=== PATIENT | male | born 1995 | race Native Hawaiian/Other Pacific Islander ===

== ENCOUNTER 2022-02-02 12:22 | Inpatient (IN) | payer OTHER ==
[~2022-02-02] VITALS: Ht 185.4 cm; Wt 74.3 kg
[2022-02-02 13:06] LABS: Hematocrit 45.7 % (37.0-53.0); Hemoglobin 16.6 g/dL (13.5-17.5); Mean Corpuscular HGB 36.4 pg (26.0-34.0); Mean Corpuscular HGB Conc 36.3 g/dL (31.5-36.5); Mean Corpuscular Volume 100 fL (80-100); Mean Platelet Volume 9.4 fL (9.1-12.4); Platelet Count 329 K/mm3 (150-400); RDW Coefficient Variation 15.3 % (11.7-14.2); RDW Standard Deviation 57.6 fL (35.1-46.3); Red Blood Cell Count 4.56 M/mm3 (4.30-5.90); White Blood Cell Count 22.53 K/mm3 (4.00-11.30)
[2022-02-02 13:23] LABS: Albumin, Blood 3.7 g/dL (3.4-5.0); Albumin/Globulin Ratio 0.9 (0.8-1.8); Bilirubin, Total 1.7 mg/dL (0.1-1.0); Bun/Creatinine Ratio 11.1 (12.0-20.0); Calcium, Blood 9.1 mg/dL (8.5-10.1); Creatinine, Blood 0.72 mg/dL (0.60-1.20); Globulin, Blood 4.1 g/dL (2.2-4.0); Potassium, Blood 3.9 mmol/L (3.5-5.5); Total Protein, Blood 7.8 g/dL (6.4-8.2)
[2022-02-02 13:26] LABS: BASOPHILS PERCENT MAN 0 % (0-2); EOSINOPHILS PERCENT MAN 0 % (0-6); LYMPHOCYTES ABSOLUTE MAN 0.45 K/mm3 (0.84-5.20); LYMPHOCYTES PERCENT MAN 2 % (21-46); MONOCYTES ABSOLUTE MAN 0.45 K/mm3 (0.16-1.47); MONOCYTES PERCENT MAN 2 % (4-13); NEUTROPHILS ABSOLUTE MAN 21.62 K/mm3 (1.96-9.15); SEG NEUTROPHILS PERCENT MAN 96 % (41-73); TOTAL CELLS COUNTED 100
[2022-02-02 15:19] LABS: International Normalized Ratio 1.4; Prothrombin Time Results 14.4 Sec (9.7-11.5)
--- NOTE | 2022-02-02 18:05 | NUR ---
Admit note Received telephone report ed rn, pt to room at approx at 1541, pt sba transfered to bed. Impulsive. Pt reports headache and epigastric pain, 8/10 medicated per order. Pt alert, oriented to person, place, current situation and unsure of dates states 11/02/21, knowns tomorrow is a holiday and the presidnet. pt states last drink was 01/31/22 at approx 0500, he drinks 12-18 mikes hard lemonades daily. CIWA 27 tremors, headache, auditory, tachtile and visual hallucinations, confusion, nausea, and anxiety/aggitation noted. Pt tele sinus/sinus tach, bp stable. Spo2 >90% on ra, breahting even and unlabored. Magnesium replacement and iv fluids infusing. Elevated temp 99.9 noted. No other acute changes noted. Will continue to monitor until report given to oncoming rn.
[2022-02-02 19:42] LABS: Source, Urine Clean Catch
[2022-02-02 19:50] LABS: Appearance, Urine Clear (Clear); Bilirubin, Urine Neg (Neg); Blood, Urine 1+ (Neg); Color, Urine Amber (P-Yellow); Glucose Qualitative, Urine Neg (Neg); Ketones, Urine 1+ (Neg); Leukocyte Esterase, Urine 1+ (Neg); Nitrite, Urine Neg (Neg); Protein, Urine 2+ (Neg); Specific Gravity, Urine 1.005 (1.003-1.022); Urobilinogen, Urine NORM (Normal)
[2022-02-02 20:15] LABS: Bacteria Few /hpf; Squamous Epithelial Cells Rare /hpf (Few)
--- NOTE | 2022-02-02 22:29 | NUR ---
ASSUMED CARE NOTE ASSUMED CARE OF PT AT 1900. PT IS ALERT AND ORIENTED TO SELF/PLACE, UNABLE TO STATE TIME. PT IS ABLE TO STATE CURRENT SITUATION. PT HAVING BOTH AUDITORY AND VISUAL HALLUCINATIONS. PT C/O ABDOMINAL AND HEADACHE PAIN, FENTANYL GIVEN PER MAY. CI 20, ATIVAN GIVEN. CALLED RESIDENT CAROLE FOR LIBRIUM ORDER. PT C/O NOT BEING ABLE TO SLEEP, ORDER FOR MELATONIN OBTAINED. CALLED RESIDENT CAROLE REGARDING PT STATUS/LABS, MADE HER AWARE THAT NO ANTIBIOTICS WERE INITIATED, NO NEW ORDERS AT THIS TIME. PT DENIES ANY NAUSEA, TOLERATING WATER. PT CAN BE IMPULSIVE, BED ALARM IN PLACE.
[2022-02-03 00:49] LABS: U Amphetamine Screen Not Detected; U Barbituate Screen Not Detected; U Benzodiazapine Screen DETECTED; U Buprenorphine Screen Not Detected; U Cannabinoids Screen Not Detected; U Cocaine Screen Not Detected; U Methadone Screen Not Detected; U Methamphetamine Screen Not Detected; U Opiates Screen Not Detected; U Oxycodone Screen DETECTED; U Phencyclidine Screen Not Detected; U Propoxyphene Screen Not Detected
[2022-02-03 04:21] LABS: BASOPHILS ABSOLUTE AUTO 0.04 K/mm3 (0.00-0.23); BASOPHILS PERCENT AUTO 0 % (0-2); EOSINOPHILS PERCENT AUTO 0 % (0-6); Hematocrit 39.3 % (37.0-53.0); Hemoglobin 13.9 g/dL (13.5-17.5); IMMATURE GRAN ABSOLUTE AUTO 0.14 K/mm3 (0.00-0.10); IMMATURE GRAN PERCENT AUTO 1 % (0-1); LYMPHOCYTES ABSOLUTE AUTO 1.21 K/mm3 (0.84-5.20); LYMPHOCYTES PERCENT AUTO 5 % (21-46); MONOCYTES ABSOLUTE AUTO 1.36 K/mm3 (0.16-1.47); MONOCYTES PERCENT AUTO 6 % (4-13); Mean Corpuscular HGB 35.9 pg (26.0-34.0); Mean Corpuscular HGB Conc 35.4 g/dL (31.5-36.5); Mean Corpuscular Volume 102 fL (80-100); NEUTROPHILS PERCENT AUTO 88 % (41-73); Platelet Count 240 K/mm3 (150-400); RDW Coefficient Variation 15.2 % (11.7-14.2); RDW Standard Deviation 57.4 fL (35.1-46.3); Red Blood Cell Count 3.87 M/mm3 (4.30-5.90); White Blood Cell Count 22.55 K/mm3 (4.00-11.30)
[2022-02-03 04:40] LABS: Magnesium, Blood 1.6 mg/dL (1.6-2.4)
[2022-02-03 04:42] LABS: Albumin, Blood 2.8 g/dL (3.4-5.0); Albumin/Globulin Ratio 0.9 (0.8-1.8); Bilirubin, Total 1.8 mg/dL (0.1-1.0); Bun/Creatinine Ratio 12.3 (12.0-20.0); Calcium, Blood 7.9 mg/dL (8.5-10.1); Creatinine, Blood 0.65 mg/dL (0.60-1.20); Potassium, Blood 3.5 mmol/L (3.5-5.5)
[2022-02-03 04:52] LABS: Total Protein, Blood 5.8 g/dL (6.4-8.2)
--- NOTE | 2022-02-03 06:24 | NUR ---
SHIFT SUMMARY: SEE PREVIOUS NOTES. PT CONTINUES TO BE ALERT AND ORIENTED TO SELF/PLACE/MONTH, PT CAN BE CONFUSED AT TIMES REGARDING THE YEAR. PT STS HE IS HAVING AUDITORY AND VISUAL HALLUCINATIONS. STS " I CAN HEAR VOICE AND LITTLE KIDS TALKING TO EACH OTHER. I CAN SEE ANIMALS IN MY ROOM." CIWA SCORES BETWEEN 8-20, MEDICATIONS GIVEN PER EMAR. PT HAS C/O PAIN TO HEAD AND ABDOMEN 10/10, FENTANYL GIVEN PER MAR WITH GOOD EFFECT. PT C/O NOT BEING ABLE TO SLEEP, MELATONIN GIVEN, NOT EFFECTIVE. PT REMAINS ON RA WITH SPO2 ABOVE 95% NO RESP DISTRESS NOTED. PT HAS BEEN IN SR TO ST WITH HR BETWEEN 90-115, BLOOD PRESSURE STABLE. TMAX 100.00. PT TO REMAIN NPO EXCEPT FOR WATER AND PILLS. PT HAS BEEN USING TOILET TO VOID, AT LEAST EVERY TWO HOURS. PT CAN BE IMPULSIVE, STAND-BY ASSISTANCE NEEDED. BED ALARM IN PLACE. CONTINUING WITH PLAN OF CARE.
--- NOTE | 2022-02-03 17:37 | NUR ---
SHIFT SUMMARY PT REMAINS ALERT AND ORIENTED. PT HAVING VISUAL AND AUDITORY HALLUCINATIONS AT TIMES THROUGHOUT SHIFT. SEE CIWA CHARTING. VS STABLE. HR REMAINS NSR TO SINUS TACH. PT COMPLAINS OF ABD PAIN MOST OF SHIFT. PT MEDICATED PER EMAR FOR PAIN AND PROVIDED HEATING PAD. PT ABLE TO REPOSITION HIMSELF IN BED. PT ABLE TO AMBULATE TO BATHROOM WITH SBA. LR INFUSING PER ORDERS. WILL CONTINUE TO MONITOR AND REPORT TO ONCOMING RN
--- NOTE | 2022-02-03 22:03 | NUR ---
ASSUMED CARE NOTE; ASSUMED CARE OF PT AT 1900. PT IS ALERT AND ORIENTED X3, ABLE TO COMMUNICATE NEEDS. PT C/O ABDOMINAL AND HEAD PAIN, FENTANYL GIVEN PER MAR. PT REQUESTING 10MG OF MELATONIN, CALLED RESIDENT CAROLE, ORDERS GIVEN. PT IN SINUS TACH WITH HR BETWEEN 100-110. BLOOD PRESSURE STABLE, AFEBRILE. PT IS A 1 PERSON ASSIST TO BATHROOM DUE TO HIM BEING UNSTEADY ON HIS FEET. BEDALARM IS ON HE CAN BE IMPULSIVE AT TIME. SEE [facility] CHARTING.
--- NOTE | 2022-02-04 01:46 | NUR ---
UPDATE: PT IS UPSET HE HAS NOT BEEN SEEN BY PHYSICAN, HE WANTS TO KNOW WHAT THE PLAN OF CARE IS. PT EDUCATED ON PLAN OF TREATMENT MULTIPLE TIMES THIS SHIFT. ADVISED THE PATIENT THAT THE PHYSICAN WILL ROUND IN THE AM, UNLESS THERE IS A CHANGE IN HIS STATUS. PT STS HE IS BECOMING AGITATED AND FRUSTRATED WITH NOT BEING ABLE TO EAT OR SLEEP. DENIES NAUSEA. PT MADE AWARE THAT THE PLAN OF CARE IS TO ADVANCE DIET TOLERATED. PT AGREES. PT STS " YOU NEED TO GET ME ATIVAN TO SLEEP AND FOR MY HUNGER PAIN" AKNOWLEGED PT'S CONCERS AND HE WAS MADE AWARE THAT THOSE ARE NOT INDICATIONS TO GIVE ATIVAN. PT GIVEN 10MG OF MELATONIN, NOT EFFECTIVE ALSO RECEVING FENTANYL WITH GOOD EFFECT, HOWEVER IT DOES NOT LAST LONG. LAST CIWA 10, LIBRIUM GIVEN PER MAY.
--- NOTE | 2022-02-04 02:11 | NUR ---
CALLED RESIDENT WITH PATIENT CONCERS. ONE TIME ORDER FOR TRAZADONE TO BE GIVEN. RESIDENT WILL COME ASSESS PT IN A FEW.
--- NOTE | 2022-02-04 04:50 | NUR ---
SHIFT SUMMARY: SEE PREVIOUS NOTES. PT CONTINUES TO BE ALERT AND ORIENTED X 3, ABLE TO FOLLOW COMMANDS AND COMMUNICATE NEEDS. PT HAS BEEN C/O PAIN TO ABD /, PAIN MEDS CHANGED TO HYDROMORPHONE, WITH GOOD EFFECT. PT HAS BEEN IN SB TO SR T/O SHIFT HR BETWEEN 56-70. BLOOD PRESSURE STABLE, PT REMAINS AFEBRILE. PT ON RA WITH SPO2 ABOVE 95% NO RESP DISTRESS NOTED. PT HAS BEEN TOLERATING CLEAR LIQUIDS, PT DENIES ANY NAUSEA. PT HAS BEEN USING TOILET TO VOID URINE, HE STATES HE IS UNABLE TO USE URINAL. PT C/O CONSTIPATION, BOWEL CARE MEDS ORDERED. PT ABD IS SLIGHTLY DISTENDED AND TENDER TO TOUCH IN ALL QUADRANTS. PT HAS BEEN MEDICATED WITH LIBRIUM PER CIWA PROTOCOL. BED ALARM IN PLACE. PT TO REMAIN ON STAND-BY ASSIST DUE TO HIM BEING UNSTEADY ON HIS FEET. WILL CONTINUE WITH CURRENT PLAN OF CARE.
[2022-02-04 05:05] LABS: BASOPHILS ABSOLUTE AUTO 0.05 K/mm3 (0.00-0.23); BASOPHILS PERCENT AUTO 0 % (0-2); EOSINOPHILS PERCENT AUTO 1 % (0-6); Hematocrit 35.7 % (37.0-53.0); Hemoglobin 12.7 g/dL (13.5-17.5); IMMATURE GRAN ABSOLUTE AUTO 0.06 K/mm3 (0.00-0.10); IMMATURE GRAN PERCENT AUTO 0 % (0-1); LYMPHOCYTES ABSOLUTE AUTO 1.77 K/mm3 (0.84-5.20); LYMPHOCYTES PERCENT AUTO 11 % (21-46); MONOCYTES ABSOLUTE AUTO 1.23 K/mm3 (0.16-1.47); MONOCYTES PERCENT AUTO 8 % (4-13); Mean Corpuscular HGB 36.2 pg (26.0-34.0); Mean Corpuscular HGB Conc 35.6 g/dL (31.5-36.5); Mean Corpuscular Volume 102 fL (80-100); Mean Platelet Volume 10.4 fL (9.1-12.4); NEUTROPHILS ABSOLUTE AUTO 12.79 K/mm3 (1.96-9.15); NEUTROPHILS PERCENT AUTO 80 % (41-73); Platelet Count 201 K/mm3 (150-400); RDW Coefficient Variation 14.8 % (11.7-14.2); RDW Standard Deviation 55.8 fL (35.1-46.3); Red Blood Cell Count 3.51 M/mm3 (4.30-5.90)
[2022-02-04 05:34] LABS: Albumin, Blood 2.5 g/dL (3.4-5.0); Albumin/Globulin Ratio 0.8 (0.8-1.8); Bilirubin, Total 1.2 mg/dL (0.1-1.0); Bun/Creatinine Ratio 9.2 (12.0-20.0); Calcium, Blood 8.5 mg/dL (8.5-10.1); Creatinine, Blood 0.54 mg/dL (0.60-1.20); Globulin, Blood 3.1 g/dL (2.2-4.0); Potassium, Blood 3.3 mmol/L (3.5-5.5); Total Protein, Blood 5.6 g/dL (6.4-8.2)
[2022-02-04] MEDS ORDERED: MELATONIN5 M1 PO (09:44)
[2022-02-04] MEDS ORDERED: FOLI1 PO (09:45)
[2022-02-04] MEDS ORDERED: GABA300 PO (09:47)
[2022-02-04] MEDS ORDERED: Restoril7.5 MG PO (09:48)
[2022-02-04] MEDS ORDERED: B-1100 M1 PO (09:48)
--- NOTE | 2022-02-04 10:09 | NUR ---
DISCHARGE DR. DE LEON ROUNDED ON PT THIS AM AND GAVE OK FOR PT TO DC HOME. REVIEWED DC MEDS AND INSTRUCTIONS WITH PT AND HE VERBALIZED UNDERSTANDING. EDUCATED PT ON THE RISKS OF CONTINUING TO DRINK ALCOHOL RELATED TO PANCREATITIS AND LIVER DISEASE. PT VERBALIZES UNDERSTANDING BUT IS VERY FLAT IN HIS RESPONSES. PT HAS ALL HIS BELONGINGS PACKED UP INCLUDING PHONE AND TABLET. PT CALLING HIS MOM TO PICK HIM UP. PT PLACED TEMAZEPAM SCRIPT IN HIS DISCHARGE FOLDER.
== END 2022-02-04 10:21 | disposition home or self-care (01) | DRG 896 ==
LOC: ER 12:22 → PCU 14:37
PROVIDERS: Emergency Medicine; Nurse Practitioner Acute Care; ADMIT Internal Medicine
DX: F10.239 Alcohol dependence with withdrawal, unspecified (principal); K85.20 Alcohol induced acute pancreatitis without necrosis or infection; R65.10 Systemic inflammatory response syndrome (SIRS) of non-infectious origin without acute organ dysfunction; R44.3 Hallucinations, unspecified; R74.01 Elevation of levels of liver transaminase levels; K76.0 Fatty (change of) liver, not elsewhere classified; F12.10 Cannabis abuse, uncomplicated; Z71.51 Drug abuse counseling and surveillance of drug abuser
CPT/HCPCS: 36415; 74160; 80053; 81001; 83690; 83735; 85025; 85610; 87086; 93005; 93010; A9270; J2060; J2405; J3010; J3360; J3411; J3475; J7030; J7120; Q9967

== ENCOUNTER 2024-01-12 11:22 | Emergency (ER) | payer OTHER ==
[~2024-01-12] VITALS: Ht 185.4 cm; Wt 68.0 kg
[~2024-01-12 11:22] MED LIST: B-1100 M1 PO; CHLO25 PO; FOLI1 PO; GABA300 PO; MELATONIN5 M1 PO; ONDA4ODT MM; Restoril7.5 MG PO
[2024-01-12 11:27] VITALS: BP 103/80
[2024-01-12] MEDS ORDERED: Ondansetron HCl 2 MG / ML 2ML Vial IV ONE (11:30)
[2024-01-12 12:15] LABS: Albumin, Blood 3.5 g/dL (3.4-5.0); Albumin/Globulin Ratio 0.9 (0.8-1.8); Bilirubin, Total 0.8 mg/dL (0.1-1.0); Bun/Creatinine Ratio 6.6 (12.0-20.0); Calcium, Blood 9.3 mg/dL (8.5-10.1); Creatinine, Blood 0.76 mg/dL (0.60-1.20); Globulin, Blood 3.7 g/dL (2.2-4.0); Potassium, Blood 4.1 mmol/L (3.5-5.5); Total Protein, Blood 7.2 g/dL (6.4-8.2)
[2024-01-12 12:20] LABS: BASOPHILS ABSOLUTE AUTO 0.04 K/mm3 (0.00-0.23); BASOPHILS PERCENT AUTO 0 % (0-2); EOSINOPHILS ABSOLUTE AUTO 0.13 K/mm3 (0.00-0.68); EOSINOPHILS PERCENT AUTO 1 % (0-6); Hematocrit 45.3 % (37.0-53.0); Hemoglobin 15.6 g/dL (13.5-17.5); IMMATURE GRAN ABSOLUTE AUTO 0.05 K/mm3 (0.00-0.10); IMMATURE GRAN PERCENT AUTO 0 % (0-1); LYMPHOCYTES ABSOLUTE AUTO 1.82 K/mm3 (0.84-5.20); LYMPHOCYTES PERCENT AUTO 14 % (21-46); MONOCYTES ABSOLUTE AUTO 0.84 K/mm3 (0.16-1.47); MONOCYTES PERCENT AUTO 7 % (4-13); Mean Corpuscular HGB 33.5 pg (26.0-34.0); Mean Corpuscular HGB Conc 34.4 g/dL (31.5-36.5); Mean Corpuscular Volume 97 fL (80-100); Mean Platelet Volume 9.3 fL (9.1-12.4); NEUTROPHILS ABSOLUTE AUTO 10.07 K/mm3 (1.96-9.15); NEUTROPHILS PERCENT AUTO 78 % (41-73); Platelet Count 404 K/mm3 (150-400); RDW Coefficient Variation 14.4 % (11.7-14.2); RDW Standard Deviation 51.8 fL (35.1-46.3); Red Blood Cell Count 4.66 M/mm3 (4.30-5.90); White Blood Cell Count 12.95 K/mm3 (4.00-11.30)
[2024-01-12] MEDS ORDERED: HYDR1TAB94 PO (14:44)
[2024-01-12] MEDS ORDERED: Ondansetron Odt8 MG MM (14:44)
== END 2024-01-12 14:50 | disposition home or self-care (01) ==
LOC: ER 11:22
PROVIDERS: Physician Assistant
DX: K85.90 Acute pancreatitis without necrosis or infection, unspecified (principal); F10.10 Alcohol abuse, uncomplicated; Z87.891 Personal history of nicotine dependence
CPT/HCPCS: 80053; 83690; 83735; 85025; 96374; 99283-25; J2405